=== PATIENT | male | born 1960 | race Caucasian/White ===

== ENCOUNTER 2020-06-21 20:54 | Emergency (ER) | payer BC ==
--- NOTE | 2020-06-21 21:47 | EDM.PDOC ---
ED HPI GENERAL MEDICAL PROBLEM - General Chief Complaint: General Stated Complaint: STEPPED ON A FELICITA NAIL/NECK IS STIFF Time Seen by Provider: 06/21/20 21:16 Source of Information: Reports: Patient History Limitations: Reports: No Limitations - History of Present Illness INITIAL COMMENTS - FREE TEXT/NARRATIVE: Patient is a 59-year-old male who presents to the emergency department with complaints of a mild, left lateral stiff neck. Symptoms began this afternoon. He cannot think of a specific activity that would have contributed to this. His neck is not painful with movement or palpation, but he states that it feels stiff. He is concerned because he stepped on a felicita nail on Saturday and is unsure when his last tetanus vaccination was. He states last time he was in the clinic, their notes show that his vaccination was 1980, however he knows he is had it sooner than then. He feels it was likely more than 10 years ago however. He is concerned that he could have tetanus. He denies any other symptoms such as tightness in his jaw or muscle cramps. Neck Pain Score (Numeric/FACES): 2 - Related Data Allergies Allergy/AdvReac Type Severity Reaction Status Date / Time No Known Allergies Allergy Verified 06/21/20 21:07 Home Meds: Home Meds Omeprazole Magnesium [Prilosec Otc] 20 mg PO DAILY 06/21/20 [History] Psyllium Husk [Metamucil] 1 tsp PO DAILY 06/21/20 [History] Past Medical History Cardiovascular History: Reports: None Respiratory History: Reports: None Gastrointestinal History: Reports: Chronic Constipation, GERD Genitourinary History: Reports: None Musculoskeletal History: Reports: Fracture Neurological History: Reports: None Psychiatric History: Reports: None Endocrine/Metabolic History: Reports: None Hematologic History: Reports: None Immunologic History: Reports: None Oncologic (Cancer) History: Reports: None Dermatologic History: Reports: None - Infectious Disease History Infectious Disease History: Reports: None - Past Surgical History HEENT Surgical History: Reports: Oral Surgery Musculoskeletal Surgical History: Reports: Other (See Below) Other Musculoskeletal Surgeries/Procedures:: Right Arm Surgery after fx. Social & Family History - Tobacco Use Smoking Status *Q: Never Smoker - Caffeine Use Caffeine Use: Reports: Coffee, Soda - Recreational Drug Use Recreational Drug Use: No ED ROS GENERAL - Review of Systems Review Of Systems: Comprehensive ROS is negative, except as noted in HPI. ED EXAM, GENERAL - Physical Exam Exam: See Below Exam Limited By: No Limitations General Appearance: Alert, WD/WN, No Apparent Distress Respiratory/Chest: No Respiratory Distress, Lungs Clear, Normal Breath Sounds, No Accessory Muscle Use, Chest Non-Tender Cardiovascular: Normal Peripheral Pulses, Regular Rate, Rhythm, No Edema, No Gallop, No JVD, No Murmur, No Rub GI/Abdominal: Normal Bowel Sounds, Soft, Non-Tender, No Organomegaly, No Distention, No Abnormal Bruit, No Mass Back Exam: Other (Left lateral neck stiffness. Full range of motion. No pain.) Neurological: Alert, Oriented, CN II-XII Intact, Normal Cognition, Normal Gait, Normal Reflexes, No Motor/Sensory Deficits Course - Vital Signs Last Recorded V/S: Last Vital Signs Temp 97.6 F 06/21/20 21:03 Pulse 94 06/21/20 21:03 Resp 16 06/21/20 21:03 BP 165/100 H 06/21/20 21:03 Pulse Ox 98 06/21/20 21:03 - Orders/Labs/Meds Orders: Active Orders 24 hr Category Date Time Status Peripheral IV Care [RC] . DIRECTED Care 06/21/20 22:21 Active Vaccines to be Administered [RC] PER UNIT ROUTINE Care 06/21/20 22:09 Active Vaccines to be Administered [RC] PER UNIT ROUTINE Care 06/21/20 22:13 Active Peripheral IV Insertion Adult [OM.PC] Stat Oth 06/21/20 22:21 Ordered Labs: Laboratory Tests 06/21/20 06/21/20 06/21/20 Range/Units 22:22 22:22 22:25 WBC 7.22 (4.23-9.07) K/mm3 RBC 4.61 L (4.63-6.08) M/mm3 Hgb 14.6 (13.7-17.5) gm/dl Hct 42.1 (40.1-51.0) % MCV 91.3 (79.0-92.2) fl MCH 31.7 (25.7-32.2) pg MCHC 34.7 (32.2-35.5) g/dl RDW Std Deviation 40.6 (35.1-43.9) fL Plt Count 316 (163-337) K/mm3 MPV 9.0 L (9.4-12.3) fl Neut % (Auto) 61.4 (34.0-67.9) % Lymph % (Auto) 26.0 (21.8-53.1) % [place] % (Auto) 8.7 (5.3-12.2) % Eos % (Auto) 3.2 (0.8-7.0) Baso % (Auto) 0.6 (0.1-1.2) % Neut # (Auto) 4.43 (1.78-5.38) K/mm3 Lymph # (Auto) 1.88 (1.32-3.57) K/mm3 [place] # (Auto) 0.63 (0.30-0.82) K/mm3 Eos # (Auto) 0.23 (0.04-0.54) K/mm3 Baso # (Auto) 0.04 (0.01-0.08) K/mm3 Sodium 139 (136-145) mEq/L Potassium 3.8 (3.5-5.1) mEq/L Chloride 103 (98-107) mEq/L Carbon Dioxide 29 (21-32) mEq/L Anion Gap 10.8 (5-15) BUN 14 (7-18) mg/dL Creatinine 1.0 (0.7-1.3) mg/dL Est Cr Clr Drug Dosing 84.15 mL/min Estimated GFR (MDRD) > 60 (>60) mL/min BUN/Creatinine Ratio 14.0 (14-18) Glucose 111 H (74-106) mg/dL Calcium 9.3 (8.5-10.1) mg/dL Total Bilirubin 0.4 (0.2-1.0) mg/dL AST 22 (15-37) U/L ALT 36 (16-63) U/L Alkaline Phosphatase 81 (46-116) U/L C-Reactive Protein < 0.2 (<1.0) mg/dL Total Protein 7.2 (6.4-8.2) g/dl Albumin 3.8 (3.4-5.0) g/dl Globulin 3.4 gm/dL Albumin/Globulin Ratio 1.1 (1-2) Urine Color Yellow (Yellow) Urine Appearance Clear (Clear) Urine pH 7.0 (5.0-8.0) Ur Specific [place] 1.020 (1.005-1.030) Urine Protein Negative (Negative) Urine Glucose (UA) Negative (Negative) Urine Ketones Negative (Negative) Urine Occult Blood Trace-lysed H (Negative) Urine Nitrite Negative (Negative) Urine Bilirubin Negative (Negative) Urine Urobilinogen 0.2 (0.2-1.0) Ur Leukocyte Esterase Negative (Negative) Urine RBC 0-5 (0-5) /hpf Urine WBC 0-5 (0-5) /hpf Ur Squamous Epith Cells 0-5 (0-5) /hpf Urine Bacteria Occasional (FEW) /hpf Urine Mucus Not seen (FEW) /hpf Meds: Medications Discontinued Medications Generic Name Dose Route Start Last Admin Trade Name Freq PRN Reason Stop Dose Admin Diphtheria/Tetanus/Acell Pertussis 0.5 ml 06/21/20 22:09 06/21/20 22:20 Adacel IM 06/21/20 22:10 0.5 ml .ONCE ONE Administration Sodium Chloride 10 ml 06/21/20 22:21 Saline Flush FLUSH ASDIRECTED PRN Keep Vein Open Tetanus Immune Globulin 250 unit 06/21/20 22:13 Hypertet S/D IM 06/21/20 22:14 .ONCE ONE - Re-Assessments/Exams Free Text/Narrative Re-Assessment/Exam: Patient is a 59-year-old male who presents with complaints of left lateral neck stiffness. States he stepped on a felicita nail on Saturday and is considered that he could have tetanus. He is unsure when his last tetanus vaccination was, however believes it is over 10 years. Called and spoke with infectious disease specialist at [facility], Dr. Jermaine Mazariegos. He recommended that we administer Tdap vaccination this evening and admit the patient for observation. Also recommended that we have the tetanus antitoxin on hand in case it is needed. Called and spoke with hospitalist, Dr. Berger. She is not comfortable admitting the patient as if he goes into tetany we do not have neurology or other specialties available. Called [facility], [place] in [place] spoke to hospitalist, Dr. Romero. She accepted the patient for transfer and admission to observation. There are no ground ambulance is available for transport and patient would like to transfer by private vehicle. He is stable and his neurologic exam is normal. His is in the room and agrees that they would like to go by private vehicle and she will drive him. Departure - Departure Time of Disposition: 23:10 Disposition: DC/Tfer to [facility] 02 Clinical Impression: Neck stiffness - Discharge Information Referrals: Brandon Weber MD [Primary Care Provider] - Forms: ED Department Discharge Sepsis Event Note (ED) - Evaluation Sepsis Screening Result: No Definite Risk - My Orders Last 24 Hours: My Active Orders 06/21/20 22:09 Vaccines to be Administered [RC] PER UNIT ROUTINE 06/21/20 22:13 Vaccines to be Administered [RC] PER UNIT ROUTINE 06/21/20 22:21 Peripheral IV Care [RC] . DIRECTED Peripheral IV Insertion Adult [OM.PC] Stat - Assessment/Plan Last 24 Hours: My Active Orders 06/21/20 22:09 Vaccines to be Administered [RC] PER UNIT ROUTINE 06/21/20 22:13 Vaccines to be Administered [RC] PER UNIT ROUTINE 06/21/20 22:21 Peripheral IV Care [RC] . DIRECTED Peripheral IV Insertion Adult [OM.PC] Stat
[2020-06-21] MEDS ORDERED: Diphtheria,Pertussis(Acell),Tetanus Vaccine 0.5 ML Syringe IM ONE (22:09)
[2020-06-21] MEDS ORDERED: Sodium Chloride 0.9% 10 ML Syringe FLUSH PRN (22:21)
== END 2020-06-21 23:24 ==
LOC: JD.ED 20:54
DX: M54.2 Cervicalgia (principal); Z23 Encounter for immunization; K21.9 Gastro-esophageal reflux disease without esophagitis; Z98.890 Other specified postprocedural states; Z79.899 Other long term (current) drug therapy
CPT/HCPCS: 36415; 80053; 81001; 85025; 86140; 90471; 90472; 90715; 99284; 99284-25

== ENCOUNTER 2020-09-16 18:13 | Emergency (ER) | payer BC ==
--- NOTE | 2020-09-16 19:40 | EDM.PDOC ---
ED HPI GENERAL MEDICAL PROBLEM - General Chief Complaint: Chest Pain Stated Complaint: CHEST PAIN AND NECK PAIN Time Seen by Provider: 09/16/20 18:59 Source of Information: Reports: Patient History Limitations: Reports: No Limitations - History of Present Illness INITIAL COMMENTS - FREE TEXT/NARRATIVE: This is a 59-year-old male. For the last week he has been having epigastric chest pressure. It seems to go and come in there actually some days he does not notice it. He states that it usually stays most of the time however. Then a couple days ago he had some sharp pain in his back that lasted about 2 minutes but it is gone now. Occasionally has to take a deep breath because it makes him feel better. Does have a history of heartburn he takes Protonix daily. Tamara ruano last week he had a cousin who was having back pain and he of a massive myocardial infarction. 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 He noticed today that his neck began to stiffen up. He comes to the ER for evaluation. He says the epigastric pressure does not go into his arms or his shoulder does not go into his neck. He does not really have episodes of shortness of breath though when he was working moving the grain he says he got short of breath. There is no immediate family history of heart problems that he is aware of. He is the middle child of 12 children and all his older siblings do not appear to have any cardiac problems. He denies any recent illnesses such as colds cough congestion, no nausea vomiting or diarrhea. Had no episodes of cold sweats. Chest Pain Score (Numeric/FACES): 1 - Related Data Allergies Allergy/AdvReac Type Severity Reaction Status Date / Time No Known Allergies Allergy Verified 09/16/20 18:22 Home Meds: Home Meds Omeprazole Magnesium [Prilosec Otc] 20 mg PO DAILY 06/21/20 [History] Psyllium Husk [Metamucil] 1 tsp PO DAILY 06/21/20 [History] Past Medical History Cardiovascular History: Reports: None Respiratory History: Reports: None Gastrointestinal History: Reports: Chronic Constipation, GERD Genitourinary History: Reports: None Musculoskeletal History: Reports: Fracture Neurological History: Reports: None Psychiatric History: Reports: None Endocrine/Metabolic History: Reports: None Hematologic History: Reports: None Immunologic History: Reports: None Oncologic (Cancer) History: Reports: None Dermatologic History: Reports: None - Infectious Disease History Infectious Disease History: Reports: Hepatitis C - Past Surgical History HEENT Surgical History: Reports: Oral Surgery Musculoskeletal Surgical History: Reports: Other (See Below) Other Musculoskeletal Surgeries/Procedures:: Right Arm Surgery after fx. Social & Family History - Tobacco Use Tobacco Use Status *Q: Never Tobacco User Second Hand Smoke Exposure: No - Caffeine Use Caffeine Use: Reports: Coffee - Alcohol Use Days Per Week of Alcohol Use: 1 Number of Drinks Per Day: 7 Total Drinks Per Week: 7 - Recreational Drug Use Recreational Drug Use: No ED ROS GENERAL - Review of Systems Review Of Systems: See Below Constitutional: Denies: Fever, Chills HEENT: Reports: No Symptoms Respiratory: Denies: Shortness of Breath, Cough Cardiovascular: Reports: Chest Pain, Dyspnea on Exertion Endocrine: Reports: No Symptoms GI/Abdominal: Denies: Abdominal Pain, Constipation, Diarrhea, Nausea, Vomiting : Reports: No Symptoms Musculoskeletal: Reports: Muscle Stiffness Skin: Reports: No Symptoms Neurological: Reports: No Symptoms Psychiatric: Reports: No Symptoms Hematologic/Lymphatic: Reports: No Symptoms ED EXAM, GENERAL - Physical Exam Exam: See Below Exam Limited By: No Limitations General Appearance: Alert, WD/WN, No Apparent Distress Eye Exam: Bilateral Eye: Normal Inspection Ears: Normal External Exam, Normal Canal, Normal TMs Nose: Normal Inspection Throat/Mouth: Normal Inspection, Normal Lips, Normal Oropharynx, Normal Voice, No Airway Compromise Head: Normocephalic Neck: Supple, Other (He has good range of motion of his neck and really does not have a lot of neck stiffness or muscle tightness though he complains of it.) Respiratory/Chest: No Respiratory Distress, Lungs Clear, Normal Breath Sounds Cardiovascular: Regular Rate, Rhythm, No Murmur GI/Abdominal: Normal Bowel Sounds, Soft, Non-Tender, Other (He complains of epigastric pressure and if I push in that area it seems to make the pressure slightly worse but it does not exacerbated markedly.) Back Exam: Normal Inspection, Full Range of Motion, Other (He has no back tenderness on palpation.) Extremities: Normal Inspection, Normal Range of Motion, Non-Tender. No: Pedal Edema Neurological: Alert, Oriented Psychiatric: Normal Affect, Normal Mood Skin Exam: Warm, Dry #1 Interpretation EKG Date: 09/16/20 Time: 19:05 EKG Interpretation Comments: EKG shows a normal sinus rhythm rate of 90. There are no acute ST or T wave changes noted there is no acute ischemia noted. Course - Vital Signs Last Recorded V/S: Last Vital Signs Temp 99.1 F 09/16/20 18:21 Pulse 97 09/16/20 18:21 Resp 18 09/16/20 18:21 BP 158/95 H 09/16/20 18:21 Pulse Ox 98 09/16/20 18:21 - Orders/Labs/Meds Orders: Active Orders 24 hr Category Date Time Status CXR [Chest 1V Frontal] [CR] Stat Exams 09/16/20 19:34 Taken Labs: Laboratory Tests 09/16/20 09/16/20 Range/Units 20:04 20:04 WBC 10.25 H (4.23-9.07) K/mm3 RBC 4.70 (4.63-6.08) M/mm3 Hgb 14.9 (13.7-17.5) gm/dl Hct 43.2 (40.1-51.0) % MCV 91.9 (79.0-92.2) fl MCH 31.7 (25.7-32.2) pg MCHC 34.5 (32.2-35.5) g/dl RDW Std Deviation 39.5 (35.1-43.9) fL Plt Count 311 (163-337) K/mm3 MPV 8.9 L (9.4-12.3) fl Neut % (Auto) 64.8 (34.0-67.9) % Lymph % (Auto) 23.7 (21.8-53.1) % [place] % (Auto) 7.9 (5.3-12.2) % Eos % (Auto) 3.1 (0.8-7.0) Baso % (Auto) 0.4 (0.1-1.2) % Neut # (Auto) 6.64 H (1.78-5.38) K/mm3 Lymph # (Auto) 2.43 (1.32-3.57) K/mm3 [place] # (Auto) 0.81 (0.30-0.82) K/mm3 Eos # (Auto) 0.32 (0.04-0.54) K/mm3 Baso # (Auto) 0.04 (0.01-0.08) K/mm3 Manual Slide Review Normal smear Sodium 138 (136-145) mEq/L Potassium 3.4 L (3.5-5.1) mEq/L Chloride 101 (98-107) mEq/L Carbon Dioxide 28 (21-32) mEq/L Anion Gap 12.4 (5-15) BUN 15 (7-18) mg/dL Creatinine 0.8 (0.7-1.3) mg/dL Est Cr Clr Drug Dosing 105.19 mL/min Estimated GFR (MDRD) > 60 (>60) mL/min BUN/Creatinine Ratio 18.8 H (14-18) Glucose 97 (74-106) mg/dL Calcium 9.3 (8.5-10.1) mg/dL Total Bilirubin 0.4 (0.2-1.0) mg/dL AST 18 (15-37) U/L ALT 29 (16-63) U/L Alkaline Phosphatase 77 (46-116) U/L Troponin I < 0.017 (0.00-0.056) ng/mL Total Protein 7.0 (6.4-8.2) g/dl Albumin 3.7 (3.4-5.0) g/dl Globulin 3.3 gm/dL Albumin/Globulin Ratio 1.1 (1-2) - Radiology Interpretation Free Text/Narrative:: Chest x-ray does not show any acute changes. There is no widened mediastinum noted. - Re-Assessments/Exams Free Text/Narrative Re-Assessment/Exam: 09/16/20 21:27 I spoke to the patient regarding the lab results and the troponin being normal. I have suggested over the weekend he just takes it easy doing nothing strenuous and then call his doctor on Saturday for possible cardiac stress test. In the meantime if he does develop further symptoms especially any of this pressure into his shoulder or down his arms or into his jaw he is to return to the ER. The patient states he understands. Departure - Departure Time of Disposition: 21:28 Disposition: Home, Self-Care 01 Condition: Good Clinical Impression: Chest pressure, Epigastric pain, Atypical chest pain Esophageal reflux Qualifiers: Esophagitis presence: without esophagitis Qualified Code(s): K21.9 - Gastro-esophageal reflux disease without esophagitis Instructions: Nonspecific Chest Pain, Adult, [id number] Referrals: Brandon Weber MD [Primary Care Provider] - Forms: ED Department Discharge Additional Instructions: Continue with your medications for the reflux, gentle activity over the weekend with no stressing and no straining, call your family doctor on Saturday morning let him know you are in the ER because you are having chest pressure and even though everything came back good he might consider doing a cardiac stress test, return to the ER if your symptoms worsen over the weekend. Sepsis Event Note (ED) - Evaluation Sepsis Screening Result: No Definite Risk - Focused Exam Vital Signs: Vital Signs Temp Pulse Resp BP Pulse Ox 09/16/20 18:21 99.1 F 97 18 158/95 H 98 - My Orders Last 24 Hours: My Active Orders 09/16/20 19:34 CXR [Chest 1V Frontal] [CR] Stat - Assessment/Plan Last 24 Hours: My Active Orders 09/16/20 19:34 CXR [Chest 1V Frontal] [CR] Stat
--- NOTE | 2020-09-19 09:22 | CR ---
PROCEDURE INFORMATION: Exam: XR Chest, 1 View Exam date and time: 09/16/2020 7:47 PM Age: 59 years old Clinical indication: Chest pain and other: Back pain TECHNIQUE: Imaging protocol: XR of the chest Views: 1 view. COMPARISON: No relevant prior studies available. FINDINGS: Lungs: Unremarkable. No consolidation. Pleural space: Unremarkable. No pleural effusion. No pneumothorax. Heart/Mediastinum: Unremarkable. No cardiomegaly. Bones/joints: Unremarkable. IMPRESSION: No acute findings. Thank you for allowing us to participate in the care of your patient. Dictated and Authenticated by: Yoseph Bowden DO 09/16/2020 9:32 PM Central Time ([place] & [place]) [place]
== END 2020-09-16 21:45 | disposition home or self-care (01) ==
LOC: JD.ED 18:13
DX: K21.9 Gastro-esophageal reflux disease without esophagitis (principal); Z79.899 Other long term (current) drug therapy
CPT/HCPCS: 36415; 71045; 71045-26; 80053; 84484; 85025; 99285-25